=== PATIENT | male | born 1990 | race Caucasian/White ===

== ENCOUNTER → 2018-12-19 | Emergency (ER) | payer MEDICAID ==
[~2018-12-19] VITALS: Ht 172.7 cm; Wt 86.5 kg
[~2018-12-19] MED LIST: CEPH-443 PO; IBUP800T48 PO; PHEN177S43 MT
[2018-12-19 05:08] VITALS: BP 139/77; PULSE 92; RESP 16; Ht 172.7 cm; Wt 86.5 kg
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
== END | disposition home or self-care (01) ==
LOC: FTE 05:05
DX: J02.9 Acute pharyngitis, unspecified (principal)
CPT/HCPCS: 99282